=== PATIENT | male | born 1955 | race Caucasian/White ===

== ENCOUNTER 2019-04-18 06:14 | Day surgery (SDC) | payer BC ==
[2019-04-15 13:59] LABS: Urine Blood Negative /uL (Negative); Urine Specific Gravity 1.026 (1.001-1.035)
[2019-04-15 14:00] LABS: Basophils # (auto) 0 uL; Basophils % (auto) 0.5 % (0.0-2.0); Eosinophils # (auto) 0.2 uL; Hematocrit 46.7 % (41.0-53.0); Hemoglobin 15.6 g/dL (13.5-17.5); Lymphocytes % (auto) 20.3 % (10.0-50.0); Mean Corpuscular Hemoglobin 28.8 pg (28.0-32.0); Mean Corpuscular Hgb Conc. 33.5 g/dL (32.0-36.0); Mean Corpuscular Volume 85.9 fL (80.0-100.0); Monocytes # (auto) 1.1 uL; Monocytes % (auto) 11.4 % (0.0-12.0); Neutrophils # (auto) 6.4 uL; Neutrophils % (auto) 65.8 % (37.0-80.0); Platelet Count (auto) 287 10^3/uL (140-450); Red Blood Cells 5.43 10^6/uL (4.5-5.90); Red Cell Distribution Width 15.2 % (11.8-14.3); White Blood Cell 9.7 10^3/uL (4.4-10.8)
[2019-04-15 14:15] LABS: INR 0.96 (0.9-1.15); Partial Thromboplastin Time 24.8 sec (23.64-32.05)
[2019-04-15 14:29] LABS: Albumin 3.5 g/dL (3.4-5.0); Calcium 8.9 mg/dL (8.5-10.1); Potassium 3.8 mmol/L (3.5-5.1)
[2019-04-15 14:33] LABS: BUN/Creatinine Ratio 15.5
[2019-04-15 14:34] LABS: Bilirubin, Total 0.5 mg/dL (0.2-1.0); Total Protein 7.3 g/dL (6.4-8.2)
[~2019-04-18] VITALS: Ht 185.4 cm; Wt 158.8 kg
[~2019-04-18 06:14] MED LIST: ASPI-404 PO; CETI1TAB36 PO; DOXY-216 PO; LEVAAER4 IN; LOSA25TA38 PO; METO-159 PO; MONT10TA34 OR; OMEP20CA74 PO; TIOT1AER2 IN
[2019-04-18] MEDS ORDERED: ceFAZolin 1GM/50ML 50 ML IV ONE (06:36)
[2019-04-18] MEDS ORDERED: ONDANSETRON HCL 4 MG/2 ML VIAL ONE (07:13)
[2019-04-18] MEDS ORDERED: fentaNYL CITRATE 100 MCG/2 ML VL ONE (07:13)
[2019-04-18] MEDS ORDERED: PROPOFOL 10 MG/ML 20 ML IV ONE (07:13)
[2019-04-18] MEDS ORDERED: MIDAZOLAM HCL 1MG/1ML-2 ML VIAL ONE (07:13)
[2019-04-18] MEDS ORDERED: SODIUM CHLORIDE LOCK 10 ML ONE (07:13)
[2019-04-18] MEDS ORDERED: SUCCINYLCHOLINE CHLORIDE 20 MG/ML 10ML VIAL IV ONE (07:22)
[2019-04-18] MEDS ORDERED: BUPIVACAINE 0.25% INJ 50ML VIAL ONE (07:43)
[2019-04-18] MEDS ORDERED: METOCLOPRAMIDE HCL 5MG/ml INJ 2ml VIAL IV PRN (07:45)
[2019-04-18] MEDS ORDERED: HYDROmorphone HCL 2 MG/ML VL IV PRN (07:45)
[2019-04-18] MEDS ORDERED: fentaNYL CITRATE 100 MCG/2 ML VL IV PRN (07:45)
[2019-04-18] MEDS ORDERED: MORPHINE SULFATE 4 MG/ML SYR/VIAL IV PRN (07:45)
[2019-04-18 09:04] VITALS: BP 110/71
== END 2019-04-18 09:08 | disposition home or self-care (01) ==
LOC: SUR 06:14
PROVIDERS: ATTEND Orthopaedic Surgery
DX: M65.311 Trigger thumb, right thumb (principal); E66.01 Morbid (severe) obesity due to excess calories; J44.9 Chronic obstructive pulmonary disease, unspecified; G47.33 Obstructive sleep apnea (adult) (pediatric); K21.9 Gastro-esophageal reflux disease without esophagitis; I10 Essential (primary) hypertension; I47.1 Supraventricular tachycardia; K44.9 Diaphragmatic hernia without obstruction or gangrene; F17.210 Nicotine dependence, cigarettes, uncomplicated; Z68.42 Body mass index [BMI] 45.0-49.9, adult; Z98.890 Other specified postprocedural states
CPT/HCPCS: 26055; 36415; 80053; 81003; 85025; 85610; 85730; J0330; J0690; J2250; J2405; J2704; J3010; J3490; J7030; 93005

== ENCOUNTER 2020-09-01 10:31 | Emergency (ER) | payer BC ==
[~2020-09-01] VITALS: Ht 185.4 cm; Wt 154.2 kg
[~2020-09-01 10:31] MED LIST changes: -ASPI-404 PO; +ASPI-543 PO; -DOXY-216 PO; +DOXY-286 PO
[2020-09-01 11:01] LABS: Basophils # (auto) 0 10 ^3/uL (0-0.2); Basophils % (auto) 0.5 % (0.0-2.0); Eosinophils # (auto) 0.2 10 ^3/uL (0-0.8); Eosinophils % (auto) 2.1 % (0.0-7.0); Hematocrit 45.2 % (41.0-53.0); Hemoglobin 15.6 g/dL (13.5-17.5); Lymphocytes # (auto) 1.8 10 ^3/uL (0.4-5.4); Lymphocytes % (auto) 20.5 % (10.0-50.0); Mean Corpuscular Hemoglobin 29.1 pg (28.0-32.0); Mean Corpuscular Hgb Conc. 34.6 g/dL (32.0-36.0); Mean Corpuscular Volume 83.9 fL (80.0-100.0); Monocytes # (auto) 0.9 10 ^3/uL (0-1.3); Monocytes % (auto) 9.9 % (0.0-12.0); Neutrophils # (auto) 5.9 10 ^3/uL (1.6-8.6); Platelet Count (auto) 276 10^3/uL (140-450); Red Blood Cells 5.38 10^6/uL (4.5-5.90); Red Cell Distribution Width 15.8 % (11.8-14.3); White Blood Cell 8.9 10^3/uL (4.4-10.8)
[2020-09-01 11:37] LABS: Chloride 111 mmol/L (98-107); Potassium 3.8 mmol/L (3.5-5.1); Sodium 142 mmol/L (136-145)
[2020-09-01 11:47] LABS: Alanine Aminotransferase 19 U/L (16-61); Albumin 3.4 g/dL (3.4-5.0); Alkaline Phosphatase 73 U/L (45-117); Anion Gap 6 (5-15); Aspartate Aminotransferase 16 U/L (15-37); BUN/Creatinine Ratio 21.2; Bilirubin, Total 0.5 mg/dL (0.2-1.0); Blood Urea Nitrogen 18 mg/dL (7-18); Calcium 8.7 mg/dL (8.5-10.1); Carbon Dioxide 25 mmol/L (21-32); GFR African American 117 mL/min; GFR Non-African American 96 mL/min; Glucose 110 mg/dL (74-106); Magnesium 2.3 mg/dL (1.6-2.6); Total Protein 7.3 g/dL (6.4-8.2)
[2020-09-01] MEDS ORDERED: IOPAMIDOL 76 % (ISOVUE-370) 100ML BTL IV ONE (15:12)
[2020-09-01 16:00] VITALS: BP 117/59
== END 2020-09-01 17:03 | disposition home or self-care (01) ==
LOC: ER 10:31
DX: I47.1 Supraventricular tachycardia (principal); I10 Essential (primary) hypertension; K21.9 Gastro-esophageal reflux disease without esophagitis; E78.5 Hyperlipidemia, unspecified; Z79.82 Long term (current) use of aspirin; Z79.899 Other long term (current) drug therapy
CPT/HCPCS: 36415; 71045; 71275; 80053; 83735; 84443; 84484; 85025; 85379; 93005; 99285; Q9967

== ENCOUNTER → 2020-11-17 | Outpatient (CLI) | payer BC ==
[~2020-11-17] VITALS: Ht 185.4 cm; Wt 152.4 kg
[~2020-11-17] MED LIST changes: +ADENOSINE 128 MG in GIVE UN-DILUTED 0 ML IV STA; -MONT10TA34 OR; +MONT10TA42 OR
== END | disposition home or self-care (01) ==
LOC: XY 07:55
PROVIDERS: ATTEND Internal Medicine
DX: I10 Essential (primary) hypertension (principal)
CPT/HCPCS: 78452; 93017; A9500; J0153

== ENCOUNTER → 2021-01-10 | Outpatient (CLI) | payer BC ==
[~2021-01-10] MED LIST changes: -ADENOSINE 128 MG in GIVE UN-DILUTED 0 ML IV STA
== END | disposition home or self-care (01) ==
LOC: LAB 10:19
PROVIDERS: ATTEND Psychiatry & Neurology Neurology
DX: G62.9 Polyneuropathy, unspecified (principal)
CPT/HCPCS: 84155; 84165